=== PATIENT | male | born 1995 | race African-American/Black ===

== ENCOUNTER 2016-04-24 12:08 | Emergency (ER) | payer OTHER ==
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
[2016-04-24 16:11] VITALS: BP 92/85
== END 2016-04-24 15:54 | disposition home or self-care (01) ==
LOC: ED 12:08
DX: S39.012A Strain of muscle, fascia and tendon of lower back, initial encounter (principal); S16.1XXA Strain of muscle, fascia and tendon at neck level, initial encounter; S80.10XA Contusion of unspecified lower leg, initial encounter; V49.9XXA Car occupant (driver) (passenger) injured in unspecified traffic accident, initial encounter; Y93.9 Activity, unspecified; Y92.9 Unspecified place or not applicable; Y99.9 Unspecified external cause status
CPT/HCPCS: 72125; 72128; 72131; 99282

== ENCOUNTER 2017-08-19 09:20 | Emergency (ER) | payer OTHER ==
--- NOTE | 2017-08-19 10:45 | ED ---
Throat Pain/Nasal Congestion - HPI Summary HPI Summary: 22 male presents ER with complaints of throat pain that began yesterday. States his throat feels sore like strep. Denies any fever chills, nausea vomiting, cough. Admits to some nasal congestion. No headache. No other symptoms otherwise. No known sick contacts. Has not taken any medication. States his throat feels swollen. However has no trouble breathing or difficulty swallowing. No past medical history. No other complaints. - History of Current Complaint Chief Complaint: EDThroatPain Time Seen by Provider: 08/19/17 09:33 Hx Obtained From: Patient Onset/Duration: Sudden Onset, Lasting Days, Still Present, Worse Since Severity: Mild Associated Signs And Symptoms: Positive: Dysphagia Cough: None - Allergies/Home Medications Allergies/Adverse Reactions: Allergies Allergy/AdvReac Type Severity Reaction Status Date / Time lactose Allergy Unknown Verified 08/19/17 09:23 Reaction Details latex Allergy Unknown Verified 08/19/17 09:23 Reaction Details Home Medications: Home Medications NK [No Home Medications Reported] 08/19/17 [History Confirmed 08/19/17] PMH/Surg Hx/FS Hx/Imm Hx Endocrine/Hematology History: Denies: Hx Anticoagulant Therapy, Hx Diabetes, Hx Anemia Cardiovascular History: Denies: Hx Hypertension Respiratory History: Denies: Hx Asthma Neurological History: Denies: Hx CVA - Surgical History Surgery Procedure, Year, and Place: "cosmetic surgery" on back - Immunization History Immunizations Up to Date: Yes Infectious Disease History: No Infectious Disease History: Denies: Traveled Outside the [place] in Last 30 Days - Family History Known Family History: Positive: None - denies heart disease/DM - Social History Alcohol Use: Occasionally Substance Use Type: Reports: None Smoking Status (MU): Never Smoked Tobacco Review of Systems Constitutional: Negative Positive: Sore Throat, Nasal Discharge Cardiovascular: Negative Respiratory: Negative Gastrointestinal: Negative Musculoskeletal: Negative Skin: Negative Neurological: Negative All Other Systems Reviewed And Are Negative: Yes Physical Exam Triage Information Reviewed: Yes Vital Signs On Initial Exam: Initial Vitals Temp Pulse Resp BP Pulse Ox 98 F 53 16 125/79 100 08/19/17 09:22 08/19/17 09:22 08/19/17 09:22 08/19/17 09:22 08/19/17 09:22 Vital Signs Reviewed: Yes Appearance: Positive: Well-Appearing, No Pain Distress, Well-Nourished Skin: Positive: Warm, Skin Color Reflects Adequate Perfusion, Dry. Negative: Cold, Numb, Cyanosis @, Pale, Weeping Skin/Lesions, Erythema @ Head/Face: Positive: Normal Head/Face Inspection Eyes: Positive: Normal, EOMI, KATHY, Conjunctiva Clear ENT: Positive: Hearing grossly normal, Pharyngeal erythema, TMs normal, Tonsillar swelling, Uvula midline - No sign of peritonsillar abscess, airways patent. Negative: Nasal congestion, Nasal drainage, TM bulging, TM red, Tonsillar exudate Dental: Negative: Percussion Tenderness @, Cervical Lymphadenopathy Neck: Positive: Supple, Nontender, No Lymphadenopathy Respiratory/Lung Sounds: Positive: Clear to Auscultation, Breath Sounds Present. Negative: Rales, Rhonchi, Wheezes Cardiovascular: Positive: Normal, RRR, Pulses are Symmetrical in both Upper and Lower Extremities. Negative: Murmur, Rub Abdomen Description: Positive: Nontender, Soft Bowel Sounds: Positive: Present Musculoskeletal: Positive: Normal, Strength/ROM Intact Neurological: Positive: Normal, Sensory/Motor Intact, Alert, Oriented to Person Place, Time Diagnostics - Vital Signs Vital Signs Temp Pulse Resp BP Pulse Ox 08/19/17 09:22 98 F 53 16 125/79 100 - Laboratory Lab Statement: Any lab studies that have been ordered have been reviewed, and results considered in the medical decision making process. EENT Course/Dx - Course Course Of Treatment: Strep obtained and negative. Appears to be suffering from a viral pharyngitis. Does not meet [facility] criteria. Will treat symptomatically at this time. Salt water gargles, Chloraseptic spray, ibuprofen /Tylenol. Fluids, rest, hygiene precautions. Aware worsening signs and symptoms watch out for. Follow-up with PCP for recheck. No other concerns. Normal vitals and physical exam otherwise. - Differential Diagnoses Differential Diagnoses: Pharyngitis, Tonsilitis, URI/Bronchitis - Diagnoses Provider Diagnoses: Pharyngitis Discharge - Sign-Out/Discharge Documenting (check all that apply): Discharge/Admit/Transfer - Discharge Plan Condition: Good Disposition: HOME Patient Education Materials: Pharyngitis (ED) Referrals: No Primary Care Phys,NOPCP [Primary Care Provider] - [facility] [place] [facility] [Outside] Additional Instructions: continue alternating ibuprofen/tylenol as needed for fever/pain. increase fluid intake. Salt water gargles recommend cold foods, chloraseptic spray over the counter to help soothe sore throat. cover mouth if coughing, wash hands frequently, do not share drinks any new or worsening symptoms please seek medical attention as discussed. follow up with pcp in 3 days to ensure improvement. - Billing Disposition and Condition Condition: GOOD Disposition: HOME
[2017-08-19 11:27] VITALS: BP 109/79
== END 2017-08-19 11:25 | disposition home or self-care (01) ==
LOC: ED 09:20
DX: J02.9 Acute pharyngitis, unspecified (principal)
CPT/HCPCS: 87651; 99282